=== PATIENT | male | born 1935 | race Caucasian/White ===

== ENCOUNTER 2017-01-04 11:43 | Emergency (ER) | payer MEDICARE, BC ==
[2017-01-04 12:15] VITALS: BP 143/87
--- NOTE | 2017-01-04 12:37 | EDM.PDOC ---
ED HPI GENERAL MEDICAL PROBLEM - General Chief Complaint: Eye Problems Stated Complaint: SCRATCHED RIGHT EYE Time Seen by Provider: 01/04/17 12:15 Source of Information: Reports: Patient History Limitations: Reports: No Limitations - History of Present Illness INITIAL COMMENTS - FREE TEXT/NARRATIVE: 81 yo male presents to ER with right eye irritation. woke this AM with crusted shut right eye. This is fairly common for him because he suffers from dry eye syndrome. This AM it was a little worse then normal. Eye irritation increased throughout the morning and it was worsened by sun and wind. Improved when he closed eye. He is able to hold eye open without difficulty. generally healthy. has had mild URI over the last few days. Denies headache, fever, chills, general ill feeling. Denies trauma to the eye, vision changes, pain with eye movement, or severe pain in eye. Right Eye Pain Score (Numeric/FACES): 8 - Related Data Allergies Allergy/AdvReac Type Severity Reaction Status Date / Time No Known Allergies Allergy Verified 01/04/17 12:15 Home Meds: Home Meds Sertraline [Zoloft] 25 mg PO DAILY 01/04/17 [History] Past Medical History HEENT History: Reports: Hard of Hearing Gastrointestinal History: Reports: Cholelithiasis Genitourinary History: Reports: BPH Psychiatric History: Reports: Depression - Past Surgical History GI Surgical History: Reports: Appendectomy, Cholecystectomy Male Surgical History: Reports: TURP-Transurethral Resection of Prostate Social & Family History - Tobacco Use Smoking Status *Q: Never Smoker - Caffeine Use Caffeine Use: Reports: Coffee - Recreational Drug Use Recreational Drug Use: No ED ROS GENERAL - Review of Systems Review Of Systems: See Below Constitutional: Denies: Fever, Chills, Fatigue HEENT: Reports: Eye Discharge, Eye Pain (irritation), Rhinitis. Denies: Contact Lenses Respiratory: Denies: Shortness of Breath, Wheezing Cardiovascular: Denies: Chest Pain ED EXAM GENERAL W FULL EYE - Physical Exam Exam: See Below Exam Limited By: No Limitations General Appearance: Alert, WD/WN, No Apparent Distress Eye Exam: Right Eye: Conjunctival Injection, Bilateral Eye: EOMI Eyelids: Bilateral: Normal Appearance Conjunctiva & Sclera: Right: Conjunctival Edema, Discharge (clear), Injected, Left: Normal Appearance Cornea Exam: Bilateral: Normal Appearance Extraocular Movements: Bilateral: Intact Pupils: Normal Accommodation Pupillary Reaction: Bilateral: Brisk Ears: Normal External Exam, Normal Canal Nose: Normal Inspection, Normal Mucosa, No Blood, Clear Rhinorrhea Throat/Mouth: Normal Inspection, Normal Oropharynx Head: Atraumatic, Normocephalic Neck: Normal Inspection, Supple, Non-Tender, Full Range of Motion. No: Lymphadenopathy (R), Lymphadenopathy (L) Respiratory/Chest: No Respiratory Distress Neurological: Alert, Oriented, Normal Cognition, Normal Gait Lymphatic: No Adenopathy Course - Vital Signs Last Recorded V/S: Last Vital Signs Temp 36.0 C 01/04/17 12:11 Pulse 75 01/04/17 12:11 Resp 16 01/04/17 12:11 BP 143/87 H 01/04/17 12:11 Pulse Ox 100 01/04/17 12:11 Departure - Departure Time of Disposition: 12:35 Disposition: Home, Self-Care 01 Condition: good Clinical Impression: Conjunctivitis Qualifiers: Conjunctivitis type: acute Acute conjunctivitis type: bacterial Laterality: right Qualified Code(s): H10.31 - Unspecified acute conjunctivitis, right eye - Discharge Information Instructions: Bacterial Conjunctivitis Referrals: PCP,None [Primary Care Provider] - Forms: ED Department Discharge Additional Instructions: antibiotic drops into both eyes every 4 hours while awake for 7 days cool compress to eyes for pain control if pain increases or your vision changes you need to be seen again
== END 2017-01-04 12:43 | disposition home or self-care (01) ==
LOC: JP.ED 11:43
DX: H10.31 Unspecified acute conjunctivitis, right eye (principal); F32.9 Major depressive disorder, single episode, unspecified; Z79.899 Other long term (current) drug therapy; Z90.49 Acquired absence of other specified parts of digestive tract; Z98.890 Other specified postprocedural states
CPT/HCPCS: 99282; 99283

== ENCOUNTER 2020-03-03 12:09 | Emergency (ER) | payer BC, MEDICARE ==
[2020-03-03 12:41] VITALS: BP 122/73; PULSE 73
[2020-03-03] MEDS ORDERED: Lidocaine 1% 20 ML MDV INJECT ONE (12:49)
[2020-03-03] MEDS ORDERED: Bacitracin Oint 1 GM U/D Packet TOP ONE (12:50)
--- NOTE | 2020-03-03 12:52 | EDM.PDOC ---
ED HPI GENERAL MEDICAL PROBLEM - General Chief Complaint: Laceration Stated Complaint: CHAIN SAW CUT TO RIGHT WRIST Time Seen by Provider: 03/03/20 12:50 Source of Information: Reports: Patient History Limitations: Reports: No Limitations - History of Present Illness INITIAL COMMENTS - FREE TEXT/NARRATIVE: Pt has a 2.5 inch laceration on the iner aspect of his wrist . This was done with a chainsaw. He has normal range of motion and snsation in his fingers. He does not recall when he had his last tetanus,. Onset: Today, Sudden Duration: Hour(s): Location: Reports: Upper Extremity, Right Associated Symptoms: Reports: No Other Symptoms Right Wrist Pain Score (Numeric/FACES): 3 - Related Data Allergies Allergy/AdvReac Type Severity Reaction Status Date / Time No Known Allergies Allergy Verified 01/04/17 12:15 Home Meds: Home Meds Sertraline [Zoloft] 25 mg PO DAILY 01/04/17 [History] Past Medical History HEENT History: Reports: Hard of Hearing Gastrointestinal History: Reports: Cholelithiasis Genitourinary History: Reports: BPH Psychiatric History: Reports: Depression - Past Surgical History GI Surgical History: Reports: Appendectomy, Cholecystectomy Male Surgical History: Reports: TURP-Transurethral Resection of Prostate Social & Family History - Tobacco Use Smoking Status *Q: Never Smoker - Caffeine Use Caffeine Use: Reports: None - Recreational Drug Use Recreational Drug Use: No ED ROS GENERAL - Review of Systems Review Of Systems: See Below Constitutional: Reports: No Symptoms HEENT: Reports: No Symptoms Respiratory: Reports: No Symptoms Cardiovascular: Reports: No Symptoms Endocrine: Reports: No Symptoms GI/Abdominal: Reports: No Symptoms Skin: Reports: Other (pt has a 2.5 inch lacertion on the rt wrist. ) ED EXAM, SKIN/RASH Exam: See Below Text/Narrative:: pt has 2 lacerations on the inner portion of the rt wrist. Exam Limited By: No Limitations General Appearance: Alert Extremities: Other (pt has a 2.5 inch laceration on the inner rt wrist. In front of the laceration is a 1 inch laceration, both are deep to the subq but do not involve the tendons. He has normal sensation and normal motion of the fingers. ) Course - Vital Signs Last Recorded V/S: Last Vital Signs Temp 36 C L 03/03/20 12:41 Pulse 73 03/03/20 12:41 Resp 16 03/03/20 12:41 BP 122/73 03/03/20 12:41 Pulse Ox 98 03/03/20 12:41 - Orders/Labs/Meds Meds: Medications Discontinued Medications Generic Name Dose Route Start Last Admin Trade Name Chris PRN Reason Stop Dose Admin Bacitracin 1 dose 03/03/20 12:50 03/03/20 13:13 Bacitracin Oint 1 Gm TOP 03/03/20 12:51 1 dose ONETIME ONE Administration Lidocaine HCl 20 ml 03/03/20 12:49 03/03/20 13:13 Xylocaine 1% INJECT 03/03/20 12:50 20 ml ONETIME ONE Administration - Re-Assessments/Exams Free Text/Narrative Re-Assessment/Exam: 03/03/20 13:38 The wounds were cleansed well and infiltrated with lidocaine. The wound were explored and did not involve deeper structures. Both wounds were closed in a layered fashion with 5-0 chromic and 5-0 prolene. it was dressed with bacatracin and a pressure type dressing. Departure - Departure Time of Disposition: 13:31 Disposition: Home, Self-Care 01 Condition: Fair Clinical Impression: Laceration - Discharge Information Referrals: PCP,None [Primary Care Provider] - Forms: ED Department Discharge Care Plan Goals: keep dry, no further ointments, leave pressure dressing on until tomorrow pm then apply health insurance sales agent dry dressing, suture removal in 8 days. keflex 500mg tid for 5 days to prevent infection, tylenol and motrin for pain. Sepsis Event Note (ED) - Evaluation Sepsis Screening Result: No Definite Risk - Focused Exam Vital Signs: Vital Signs Temp Pulse Resp BP Pulse Ox 03/03/20 12:41 36 C L 73 16 122/73 98
== END 2020-03-03 13:45 | disposition home or self-care (01) ==
LOC: JP.ED 12:09
DX: S61.511A Laceration without foreign body of right wrist, initial encounter (principal); W27.0XXA Contact with workbench tool, initial encounter
CPT/HCPCS: 12034; 12044; 99282; 99283; J2001; 12001

== ENCOUNTER 2021-08-11 10:29 | Emergency (ER) | payer MEDICARE ==
--- NOTE | 2021-08-11 11:17 | EDM.PDOC ---
ED HPI GENERAL MEDICAL PROBLEM - General Chief Complaint: Respiratory Problem Stated Complaint: CONGESTION, COUGH Time Seen by Provider: 08/11/21 11:00 Source of Information: Reports: Patient, RN. Denies: Old Records History Limitations: Reports: Other (no old records) - History of Present Illness INITIAL COMMENTS - FREE TEXT/NARRATIVE: 85 yo male is here with a cough and congestion. No fever or SOB. Some nasal discharge. Was tested negative for Covid 5 d ago and is fully immunized. Cough is productive. Onset: Gradual Onset Date: 08/04/21 Duration: Week(s): (1), Constant Location: Reports: Face (nose), Chest Quality: Reports: Other (no pain) Severity: Moderate Improves with: Reports: None Worsens with: Reports: None Context: Reports: Other (See HPI) Associated Symptoms: Reports: Cough, Other (rhinitis). Denies: Fever/Chills, Shortness of Breath Treatments ICU STAFF NURSE: Reports: Other (see below) (none) Chest Pain Score (Numeric/FACES): 5 - Related Data Allergies Allergy/AdvReac Type Severity Reaction Status Date / Time No Known Allergies Allergy Verified 08/11/21 11:06 Home Meds: Home Meds Sertraline [Zoloft] 25 mg PO DAILY 01/04/17 [History] Past Medical History HEENT History: Reports: Hard of Hearing Gastrointestinal History: Reports: Cholelithiasis Genitourinary History: Reports: BPH Psychiatric History: Reports: Depression - Past Surgical History GI Surgical History: Reports: Appendectomy, Cholecystectomy Male Surgical History: Reports: TURP-Transurethral Resection of Prostate Social & Family History - Tobacco Use Tobacco Use Status *Q: Never Tobacco User - Caffeine Use Caffeine Use: Reports: None - Recreational Drug Use Recreational Drug Use: No ED ROS GENERAL - Review of Systems Review Of Systems: See Below Constitutional: Denies: Fever, Chills HEENT: Reports: Rhinitis Respiratory: Reports: Cough, Sputum. Denies: Shortness of Breath Cardiovascular: Reports: No Symptoms GI/Abdominal: Reports: No Symptoms : Reports: No Symptoms Musculoskeletal: Reports: No Symptoms Skin: Reports: No Symptoms Neurological: Reports: No Symptoms ED EXAM, GENERAL - Physical Exam Exam: See Below Exam Limited By: No Limitations General Appearance: Alert, WD/WN, No Apparent Distress, Thin Eye Exam: Bilateral Eye: Normal Inspection Ears: Normal External Exam, Normal Canal, Hearing Grossly Normal, Normal TMs, Other (L ear hearing aid) Ear Exam: Bilateral Ear: Auricle Normal, Canal Normal Nose: Clear Rhinorrhea Throat/Mouth: Normal Inspection, Normal Lips, Normal Oropharynx, Normal Voice, No Airway Compromise Head: Atraumatic, Normocephalic Neck: Normal Inspection Respiratory/Chest: No Respiratory Distress, Lungs Clear, Normal Breath Sounds, No Accessory Muscle Use Cardiovascular: Regular Rate, Rhythm, No Edema Extremities: Normal Inspection Neurological: Alert, Oriented, CN II-XII Intact, Normal Cognition Psychiatric: Normal Affect, Normal Mood Skin Exam: Warm, Dry, Intact, Normal Color, No Rash Course - Vital Signs Last Recorded V/S: Last Vital Signs Temp 36.7 C 08/11/21 11:05 Pulse 80 08/11/21 11:28 Resp 18 08/11/21 11:05 BP 125/68 08/11/21 11:28 Pulse Ox 92 L 08/11/21 11:28 - Orders/Labs/Meds Orders: Active Orders 24 hr Category Date Time Status Isolation [COMM] Stat Oth 08/11/21 10:34 Ordered Labs: Laboratory Tests 08/11/21 08/11/21 Range/Units 11:11 11:20 WBC 5.0 (4.5-11.0) K/uL RBC 4.20 L (4.30-5.90) M/uL Hgb 12.7 (12.0-15.0) g/dL Hct 38.8 L (40.0-54.0) % MCV 92 (80-98) fL MCH 30 (27-31) pg MCHC 33 (32-36) % Plt Count 134 L (150-400) K/uL Neut % (Auto) 59.7 (36-66) % Lymph % (Auto) 24.4 (24-44) % [place] % (Auto) 13.3 H (2-6) % Eos % (Auto) 2.0 (2-4) % Baso % (Auto) 0.6 (0-1) % Influenza Type A RNA Negative (NEGATIVE) RSV RNA (INAAT) Positive H (NEGATIVE) Influenza Type B RNA Negative (NEGATIVE) SARS-CoV-2 RNA (EMILY) Negative (NEGATIVE) Departure - Departure Time of Disposition: 11:59 Disposition: Home, Self-Care 01 Condition: Fair Clinical Impression: RSV (respiratory syncytial virus infection) - Discharge Information *PRESCRIPTION DRUG MONITORING PROGRAM REVIEWED*: Not Applicable *COPY OF PRESCRIPTION DRUG MONITORING REPORT IN PATIENT SATHISH: Not Applicable Referrals: PCP,None [Primary Care Provider] - Forms: ED Department Discharge Additional Instructions: You have a respiratory syncytial virus infection. This is generally self- limiting in adults. You may use acetaminophen, humidifier, Robitussin DM, etc for your symptoms. Stay hydrated. You may be contagious still so isolate yourself as much as you reasonably can. Sepsis Event Note (ED) - Evaluation Sepsis Screening Result: No Definite Risk - Focused Exam Vital Signs: Vital Signs Temp Pulse Resp BP Pulse Ox 08/11/21 11:28 80 125/68 92 L 08/11/21 11:05 36.7 C 86 18 130/74 97 - My Orders Last 24 Hours: My Active Orders 08/11/21 10:34 Isolation [COMM] Stat - Assessment/Plan Last 24 Hours: My Active Orders 08/11/21 10:34 Isolation [COMM] Stat
[2021-08-11 11:52] LABS: CORONAVIRUS COVID-19 NAA NEGATIVE (NEGATIVE)
[2021-08-11 12:11] VITALS: BP 117/70; PULSE 73
== END 2021-08-11 12:21 | disposition home or self-care (01) ==
LOC: JP.ED 10:29
DX: R05.9 Cough, unspecified (principal); B97.4 Respiratory syncytial virus as the cause of diseases classified elsewhere; Z20.822 Contact with and (suspected) exposure to COVID-19
CPT/HCPCS: 0241U; 36415; 85025; 99283